=== PATIENT | female | born 2005 | race Caucasian/White ===

== ENCOUNTER 2024-03-20 12:48 | Outpatient (CLI) | payer BC, SELFPAY | END 2024-03-20 12:49 | disposition home or self-care (01) | LOC: NFLDREF 03-24 19:52 | PROVIDERS: Visit Provider Physician Assistant | DX: N39.0 Urinary tract infection, site not specified (principal); B96.20 Unspecified Escherichia coli [E. coli] as the cause of diseases classified elsewhere | CPT/HCPCS: 87086; 87186 ==

== ENCOUNTER 2024-11-28 08:31 | Outpatient (CLI) | payer BC, SELFPAY ==
[2024-11-28 13:00] LABS: Chlamydia DNA Amplified* NOT DETECTED (No Detected); GC DNA Amplified* NOT DETECTED (No Detected)
== END 2024-11-28 08:32 | disposition home or self-care (01) ==
LOC: NFLDREF 08:32
PROVIDERS: Visit Provider Registered Nurse
DX: Z11.3 Encounter for screening for infections with a predominantly sexual mode of transmission (principal)
CPT/HCPCS: 87491; 87591